=== PATIENT | male | born 1965 | race Caucasian/White ===

== ENCOUNTER 2020-11-20 01:06 | Inpatient (IN) | payer MEDICAID, SELFPAY ==
[~2020-11-20] VITALS: Ht 170.2 cm; Wt 80.1 kg
[2020-11-20] MEDS ORDERED: LOSA25TA25 PO (01:46)
[2020-11-20] MEDS ORDERED: TIOT4MIS3 INH (01:46)
[2020-11-20] MEDS ORDERED: UMEC62.5 INH (01:46)
[2020-11-20] MEDS ORDERED: ALBU90AE2 INH (01:46)
--- NOTE | 2020-11-20 02:00 | NUR ---
patient O2 saturation found to be at 87% on RA. no obvious distress or C/O SOB at this time. denies CP. placed on 2L via NC. labs drawn and sent to lab. patient to XR and then when back patient 91% on 2L via NC so this was increased to 3L via NC. will continue to monitor
[2020-11-20 02:08] LABS: BASOPHILS % (AUTO) 1 % (0-1); EOSINOPHILS % (AUTO) 1 % (1-7); LYMPHOCYTES % (AUTO) 26 % (22-44); MEAN CORPUSCULAR HEMOGLOBIN 32.6 pg (27.5-34.5); MEAN CORPUSCULAR HGB CONC 34.1 g/dL (33.2-36.2); MEAN PLATELET VOLUME 8.7 fL (7.4-10.4); MONOCYTES % (AUTO) 11 % (2-9); NEUTROPHILS % (AUTO) 62 % (42-75); PLATELET COUNT 212 x10^3/uL (130-400); RED BLOOD COUNT 5.37 x10^6/uL (4.38-5.82); RED CELL DISTRIBUTION WIDTH 13.6 % (9.4-14.8)
[2020-11-20 02:12] LABS: MD NO
[2020-11-20 02:18] LABS: ANION GAP 7 mmol/L (5-15); CALCIUM 8.7 mg/dL (8.5-10.1); CHLORIDE 107 mmol/L (98-107); CREATININE 1.16 mg/dL (0.7-1.3)
[2020-11-20 02:19] LABS: ALANINE AMINOTRANSFERASE 38 U/L (12-78); ALBUMIN 3.4 g/dL (3.4-5.0)
[2020-11-20 02:23] LABS: ALKALINE PHOSPHATASE 88 U/L (45-117); BILIRUBIN,TOTAL 1.3 mg/dL (0.2-1.0); TOTAL PROTEIN 6.4 g/dL (6.4-8.2); TROPONIN I < 0.015 ng/mL (0.000-0.045)
[2020-11-20] MEDS ORDERED: OMNIPAQUE 350 MG/ML, 100ML BOTTLE ONE (02:58)
--- NOTE | 2020-11-20 02:58 | NUR ---
patient back from CT. call gross in reach. in NAD
[2020-11-20] MEDS ORDERED: ASPIRIN 81 MG TABLET CHEW ONE (03:47)
[2020-11-20] MEDS ORDERED: FUROSEMIDE 40 MG/4 ML ONE (03:47)
[2020-11-20] MEDS ORDERED: FUROSEMIDE 40 MG/4 ML IV ONE (04:00)
[2020-11-20] MEDS ORDERED: ASPIRIN 81 MG TABLET CHEW PO ONE (04:00)
--- NOTE | 2020-11-20 04:00 | NUR ---
VS REMAIN STABLE. CALL DORSEY IN REACH. PATIENT RESTING IN BED WITH EYES CLOSED IN BED. NO FURTHER NEEDS AT THIS TIME
--- NOTE | 2020-11-20 05:00 | NUR ---
URINALS REMAIN AT BEDSIDE. CALL DORSEY IN REACH. PATIENT RESTING IN BED WATCHING TV. IN NAD. WILL CONTINUE TO MONITOR.
--- NOTE | 2020-11-20 05:17 | NUR ---
REPORT GIVEN TO HUMBLE CHEW
[2020-11-20 05:30] LABS: TROPONIN I < 0.015 ng/mL (0.000-0.045)
[2020-11-20] MEDS ORDERED: ONDANSETRON 2MG/ML, 2ML IVPush PRN (05:30)
[2020-11-20] MEDS ORDERED: TIOTROPIUM BR INH SCH (05:30)
[2020-11-20] MEDS ORDERED: ALBUTEROL HFA 90 MCG/SPRAY INH PRN (05:30)
[2020-11-20] MEDS ORDERED: [UNRECOGNIZED DRUG - OTHER] INH SCH (05:30)
[2020-11-20] MEDS ORDERED: OLODATEROL HCL INH SCH (05:30)
[2020-11-20] MEDS ORDERED: DOCUSATE 100 MG CAPSULE PO PRN (05:30)
[2020-11-20] MEDS ORDERED: HYDROcodone/APAP 5/325 TABLET PO PRN (05:30)
--- NOTE | 2020-11-20 06:06 | NUR ---
REPORT GIVEN TO SHARONDA CHEW
[2020-11-20] MEDS: HEPARIN 5,000 UNITS/ML, 1ML SQ SCH ×3 (06:40→20:17)
[2020-11-20 07:08] VITALS: BP 149/89
[2020-11-20 07:21] LABS: BASOPHILS % (AUTO) 2 % (0-1); EOSINOPHILS % (AUTO) 2 % (1-7); LYMPHOCYTES % (AUTO) 36 % (22-44); MEAN CORPUSCULAR HEMOGLOBIN 32.8 pg (27.5-34.5); MEAN CORPUSCULAR HGB CONC 34.3 g/dL (33.2-36.2); MEAN PLATELET VOLUME 8.7 fL (7.4-10.4); MONOCYTES % (AUTO) 11 % (2-9); NEUTROPHILS % (AUTO) 49 % (42-75); PLATELET COUNT 212 x10^3/uL (130-400); RED BLOOD COUNT 5.41 x10^6/uL (4.38-5.82); RED CELL DISTRIBUTION WIDTH 13.5 % (9.4-14.8)
[2020-11-20 07:23] LABS: MD NO
[2020-11-20] MEDS ORDERED: TEMPLATE NON-FORMULARY MED. (Umeclidinium Bromide (Incruse Ellipta) 1 PUFF) INH SCH (09:00)
[2020-11-20] MEDS: LOSARTAN 25MG TABLET PO SCH (09:01)
[2020-11-20 13:17] VITALS: BP 134/86
[2020-11-20] MEDS ORDERED: hydrALAzine 20 MG/ML, 1ML IV PRN (15:30)
[2020-11-20] MEDS: FUROSEMIDE 40 MG/4 ML IV SCH (16:11)
[2020-11-20 20:10] VITALS: BP 109/82
[2020-11-21 00:13] VITALS: BP 115/75
[2020-11-21] MEDS: HEPARIN 5,000 UNITS/ML, 1ML SQ SCH ×3 (05:06→19:59)
[2020-11-21 05:59] LABS: CHLORIDE 98 mmol/L (98-107)
[2020-11-21 06:11] LABS: ALANINE AMINOTRANSFERASE 34 U/L (12-78); ALBUMIN 3.4 g/dL (3.4-5.0); ALKALINE PHOSPHATASE 92 U/L (45-117); ANION GAP 11 mmol/L (5-15); BILIRUBIN,TOTAL 2.3 mg/dL (0.2-1.0); CALCIUM 8.8 mg/dL (8.5-10.1); CHOL/HDL RATIO 3.4; CHOLESTEROL, TOTAL 151 mg/dL (140-239); CREATININE 1.05 mg/dL (0.7-1.3); HDL CHOL % 30 % (26-37); HDL CHOLESTEROL (DIRECT) 45 mg/dL (40-60); LDL CHOLESTEROL,CALCULATED 89 mg/dL (54-169); TOTAL PROTEIN 6.5 g/dL (6.4-8.2); TRIGLYCERIDES 86 mg/dL (50-200); VLDL CHOLESTEROL 17 mg/dL (0-25)
[2020-11-21 08:52] VITALS: BP 99/67
[2020-11-21] MEDS: LOSARTAN 25MG TABLET PO SCH (09:11)
[2020-11-21] MEDS: FUROSEMIDE 40 MG/4 ML IV SCH (09:11)
[2020-11-21] MEDS: FLUTICASONE/VILANTEROL 100-25MCG/INH INH SCH (10:50)
[2020-11-21] MEDS: TIOTROPIUM BROMIDE 18 MCG/INH INH SCH (10:50)
[2020-11-21 15:00] VITALS: BP 93/70
[2020-11-21 19:57] VITALS: BP 135/77
[2020-11-21] MEDS: AMLODIPINE 2.5 MG TABLET PO SCH (19:59)
[2020-11-22 02:43] VITALS: BP 121/76
[2020-11-22 05:34] LABS: BASOPHILS % (AUTO) 1 % (0-1); EOSINOPHILS % (AUTO) 2 % (1-7); LYMPHOCYTES % (AUTO) 29 % (22-44); MEAN CORPUSCULAR HGB CONC 34.4 g/dL (33.2-36.2); MEAN PLATELET VOLUME 9.1 fL (7.4-10.4); MONOCYTES % (AUTO) 12 % (2-9); NEUTROPHILS % (AUTO) 56 % (42-75); PLATELET COUNT 241 x10^3/uL (130-400); RED BLOOD COUNT 6.05 x10^6/uL (4.38-5.82); RED CELL DISTRIBUTION WIDTH 13.4 % (9.4-14.8)
[2020-11-22] MEDS: HEPARIN 5,000 UNITS/ML, 1ML SQ SCH ×2 (05:38→15:24)
[2020-11-22 05:40] LABS: MD NO
[2020-11-22 05:42] LABS: ANION GAP 4 mmol/L (5-15); CALCIUM 9.2 mg/dL (8.5-10.1); CHLORIDE 99 mmol/L (98-107)
[2020-11-22 05:44] LABS: CREATININE 1.23 mg/dL (0.7-1.3)
[2020-11-22 07:04] VITALS: BP 110/75
[2020-11-22] MEDS: TIOTROPIUM BROMIDE 18 MCG/INH INH SCH (07:40)
[2020-11-22] MEDS: FLUTICASONE/VILANTEROL 100-25MCG/INH INH SCH (07:40)
[2020-11-22] MEDS: LOSARTAN 25MG TABLET PO SCH (08:48)
[2020-11-22] MEDS: AMLODIPINE 2.5 MG TABLET PO SCH (08:48)
[2020-11-22] MEDS ORDERED: FUROSEMIDE 40 MG TABLET PO SCH (09:00)
[2020-11-22 13:26] VITALS: BP 96/63
[2020-11-22] MEDS ORDERED: ALBU90AE2 INH (14:03)
[2020-11-22] MEDS ORDERED: AMLO2.5T5 PO (14:03)
[2020-11-22] MEDS ORDERED: FURO40TA6 PO (14:03)
[2020-11-22] MEDS ORDERED: LOSA25TA25 PO (14:03)
[2020-11-22] MEDS ORDERED: TIOT18CA INH (14:03)
== END 2020-11-22 17:56 | disposition home or self-care (01) | DRG 291 ==
LOC: ED 05:01 → EDIP 05:04 → UNDOADMIN 05:04 → EDIP 05:45 → 4WST 06:17
PROVIDERS: ADMIT Internal Medicine; ATTEND Internal Medicine
DX: I11.0 Hypertensive heart disease with heart failure (principal); I50.21 Acute systolic (congestive) heart failure; J96.01 Acute respiratory failure with hypoxia; F15.90 Other stimulant use, unspecified, uncomplicated; R55 Syncope and collapse; E87.70 Fluid overload, unspecified; J44.9 Chronic obstructive pulmonary disease, unspecified; M70.21 Olecranon bursitis, right elbow; Z80.42 Family history of malignant neoplasm of prostate; Z87.891 Personal history of nicotine dependence
CPT/HCPCS: 36415; 71046; 71275; 80048; 80053; 80061; 83036; 83735; 83880; 84100; 84443; 84484; 85025; 93005; 93306; 94640; G0378; J1644; J1940; Q9967

== ENCOUNTER 2021-02-22 03:58 | Emergency (ER) | payer MEDICAID ==
[~2021-02-22] VITALS: Ht 172.7 cm; Wt 76.6 kg
[~2021-02-22 03:58] MED LIST: ALBU90AE2 INH; AMLO2.5T5 PO; FURO40TA6 PO; LOSA25TA25 PO; TIOT18CA INH; TIOT4MIS3 INH; UMEC62.5 INH
[2021-02-22 04:02] VITALS: BP 134/98
--- NOTE | 2021-02-22 04:10 | NUR ---
PT PRESENTS TO ER FOR RIGHT ELBOW INJURY, PT STATES A FEW YEARS AGO HE HAD A STAPH INFECTION IN THE SAME ELBOW BUT THIS TIME IT FEELS DIFFERENT, PTS ELBOW HAS A NOTICABLE BUMP ON IT, IT IS NOT WARM TO TOUCH AND NOT DRAINING ANY FLUID, PT A/OX4, ALL NEEDS IN REACH, CALL LIT IN REACH, NAD AT THIS TIME
[2021-02-22] MEDS ORDERED: LIDOCAINE-MPF 1%, 2ML ONE (04:16)
--- NOTE | 2021-02-22 04:26 | NUR ---
ER COLLECTED SAMPLE FROM PTS ELBOW AND SENT TO LAB, PT TO BE DISCHARGED WITH SCRIPT FOR ANTIBIOTICS
== END 2021-02-22 04:42 | disposition home or self-care (01) ==
LOC: ED 04:36
DX: M71.121 Other infective bursitis, right elbow (principal); L02.413 Cutaneous abscess of right upper limb; J44.9 Chronic obstructive pulmonary disease, unspecified; I50.9 Heart failure, unspecified
CPT/HCPCS: 10060; 87070; 87077; 87186; 87205; 99283

== ENCOUNTER 2021-03-22 12:01 | Day surgery (SDC) | payer MEDICAID ==
[~2021-03-22] VITALS: Ht 170.2 cm; Wt 77.3 kg
[2021-03-22] MEDS ORDERED: LOSA25TA25 PO (12:28)
[2021-03-22] MEDS ORDERED: ALBU90AE INH (12:28)
[2021-03-22] MEDS ORDERED: POTA20TA6 PO (12:28)
[2021-03-22] MEDS ORDERED: TIOT4MIS3 INH (12:28)
[2021-03-22] MEDS ORDERED: DIPHENHYDRAMINE 50 MG/ML, 1ML IVPush ONE (12:30)
[2021-03-22] MEDS ORDERED: SODIUM CHLORIDE 0.9% 1,000 ML IV SCH ×2 (12:30→16:00)
[2021-03-22 12:38] VITALS: BP 105/85
[2021-03-22 12:39] LABS: BASOPHILS % (AUTO) 1 % (0-1); EOSINOPHILS % (AUTO) 2 % (1-7); LYMPHOCYTES % (AUTO) 31 % (22-44); MEAN CORPUSCULAR HEMOGLOBIN 33.5 pg (27.5-34.5); MEAN CORPUSCULAR HGB CONC 34.7 g/dL (33.2-36.2); MEAN PLATELET VOLUME 8.4 fL (7.4-10.4); MONOCYTES % (AUTO) 11 % (2-9); NEUTROPHILS % (AUTO) 55 % (42-75); PLATELET COUNT 205 x10^3/uL (130-400); RED BLOOD COUNT 5.49 x10^6/uL (4.38-5.82); RED CELL DISTRIBUTION WIDTH 13.5 % (9.4-14.8)
[2021-03-22 12:51] LABS: ALBUMIN 3.3 g/dL (3.4-5.0); ANION GAP 6 mmol/L (5-15); CALCIUM 8.6 mg/dL (8.5-10.1); CHLORIDE 103 mmol/L (98-107)
[2021-03-22] MEDS ORDERED: DIPHENHYDRAMINE 50 MG/ML, 1ML ONE (12:52)
[2021-03-22 12:57] LABS: ALANINE AMINOTRANSFERASE 39 U/L (12-78); ALKALINE PHOSPHATASE 98 U/L (45-117); BILIRUBIN,TOTAL 0.8 mg/dL (0.2-1.0); CREATININE 1.13 mg/dL (0.7-1.3); TOTAL PROTEIN 6.5 g/dL (6.4-8.2)
[2021-03-22] MEDS ORDERED: MIDAZOLAM 1 MG/ML, 5ML ONE (14:11)
[2021-03-22] MEDS ORDERED: VERAPAMIL 2.5 MG/ML, 2ML ONE (14:12)
[2021-03-22] MEDS ORDERED: HEPARIN 1,000 UNITS/ML, 10ML ONE (14:12)
[2021-03-22] MEDS ORDERED: FENTANYL PF 100 MCG/2ML ONE (14:12)
[2021-03-22] MEDS ORDERED: LIDOCAINE-MPF 1%, 5ML ONE (14:12)
[2021-03-22] MEDS ORDERED: FUROSEMIDE 40 MG/4 ML ONE (16:07)
[2021-03-22] MEDS ORDERED: FUROSEMIDE 40 MG/4 ML IV ONE (16:30)
== END 2021-03-22 16:40 | disposition home or self-care (01) ==
LOC: CACL 12:01
PROVIDERS: ATTEND Internal Medicine Cardiovascular Disease
DX: R06.02 Shortness of breath (principal); I27.20 Pulmonary hypertension, unspecified; I36.1 Nonrheumatic tricuspid (valve) insufficiency; I10 Essential (primary) hypertension; G47.34 Idiopathic sleep related nonobstructive alveolar hypoventilation; Z79.899 Other long term (current) drug therapy; Z87.891 Personal history of nicotine dependence
CPT/HCPCS: 36415; 80053; 82330; 82803; 82947; 83880; 84132; 84295; 85014; 85025; 93460; 99156; 99157; C1769; C1894; J1200; J1644; J1940; J2250; J3010; Q9967